=== PATIENT | male | born 1950 | race Hispanic/Latino ===

== ENCOUNTER → 2022-06-01 | Outpatient (CLI) | payer MEDICARE ==
[~2022-06-01] MED LIST: AMOX-426 PO; ASPI-1005 PO; BENA40TA92 PO; FISH1CAP50 PO; GRAP1CAP PO; HYDR12.54 PO; LUTE6CAP2 PO; MAGN250C PO; ROSU10TA22 PO; UBID50CA23 PO
== END | disposition home or self-care (01) ==
LOC: RAH 14:40
PROVIDERS: ATTEND Family Medicine
DX: J69.0 Pneumonitis due to inhalation of food and vomit (principal)
CPT/HCPCS: 71250